=== PATIENT | male | born 1955 | race African-American/Black ===

== ENCOUNTER 2020-03-16 15:01 | Emergency (ER) | payer SELFPAY ==
[~2020-03-16] VITALS: Ht 175.3 cm; Wt 85.0 kg
[2020-03-16 15:07] VITALS: BP 150/74
[2020-03-16] MEDS ORDERED: PENI500T PO (15:26)
--- NOTE | 2020-03-16 15:26 | PHYS DOC ---
Past Medical History Past Medical History: No Pertinent History Past Surgical History: No Surgical History Drug Use: None General Adult EDM: Chief Complaint: FACE PROBLEM HPI: HPI: 64-year-old male presenting with left upper dental pain with some swelling. This started within the past 24 to 48 hours. His significant other is trying to get him into a dentist currently. They called his primary doctor who had him come in for evaluation. He has a throbbing moderate pain which is worse at night. He denies any fevers or any new rashes. He denies difficulty swallowing or drooling. Review of systems negative for neck pain or swelling tongue swelling drooling neck stiffness. All other review of systems negative. ED course: 64-year-old male presenting with dental pain with cavity and erosion of the left back upper teeth. The patient is tender to palpation along the gingiva without obvious palpable abscess formation. Otherwise normal examination. We will start the patient on oral penicillin with some oral hydrocodone to follow-up with a dentist in 1 to 2 days. The patient has been examined and was not found to have an emergency medical condition. The patient was then discharged home in stable condition to follow up with their primary care physician over the next 1-2 days. They were to return if their symptoms worsened or if they were concerned for any reason. They were also instructed to return to the emergency department if they were unable to get the recommended and appropriate follow-up. [id number] discharge instructions and return precautions were given. Patient's questions were answered to their satisfaction. Patient is comfortable with plan. Heart Score: Risk Factors: Risk Factors: DM, Current or recent (<one month) smoker, HTN, HLP, family history of CAD, obesity. Risk Scores: Score 0 - 3: 2.5% MACE over next 6 weeks - Discharge Home Score 4 - 6: 20.3% MACE over next 6 weeks - Admit for Clinical Observation Score 7 - 10: 72.7% MACE over next 6 weeks - Early Invasive Strategies Allergies: Allergies: Allergies Coded Allergies Type Severity Reaction Last Updated Verified No Known Drug Allergies 03/16/20 No Physical Exam: PE: Constitutional: Well developed, well nourished, no acute distress, non-toxic appearance. [] HENT: Normocephalic, atraumatic, bilateral external ears normal, oropharynx moist, no oral exudates, nose normal. Mouth: Poor dentition on the left upper back teeth with obvious cavities. No palpable fluctuant abscesses. No TMJ trismus. Normal oropharyngeal examination otherwise Eyes: PERRLA, EOMI, conjunctiva normal, no discharge. [] Neck: Normal range of motion, no tenderness, supple, no stridor. [] Cardiovascular:Heart rate regular rhythm, no murmur [] Lungs & Thorax: Bilateral breath sounds clear to auscultation [] Abdomen: Bowel sounds normal, soft, no tenderness, no masses, no pulsatile masses. [] Skin: Warm, dry, no erythema, no rash. [] Back: No tenderness, no CVA tenderness. [] Extremities: No tenderness, no cyanosis, no clubbing, ROM intact, no edema. [] Neurologic: Alert and oriented X 3, normal motor function, normal sensory function, no focal deficits noted. [] Psychologic: Affect normal, judgement normal, mood normal. [] EKG: EKG: [] Radiology/Procedures: Radiology/Procedures: [] Course & Med Decision Making: Course & Med Decision Making Pertinent Labs and Imaging studies reviewed. (See chart for details) [] Dragon Disclaimer: Dragon Disclaimer: This electronic medical record was generated, in whole or in part, using a voice recognition dictation system. Departure Departure Impression: Primary Impression: Pain, dental Disposition: 01 HOME, SELF-CARE Condition: STABLE Patient Instructions: Dental Pain Scripts Hydrocodone Bit/Acetaminophen (HYDROCODONE-APAP 5-325 ) 1 Tab Tablet 1 TAB PO PRN Q8HRS PRN for sev, #8 TAB 0 Refills Prov: ALAN SANCHES MD 03/16/20 Penicillin V Potassium (PENICILLIN V POTASSIUM) 500 Mg Tablet 1 TAB PO TID, #30 TAB 0 Refills Prov: ALAN SANCHES MD 03/16/20 ALAN SANCHES MD Mar 16, 2020 15:26
[2020-03-16] MEDS ORDERED: HYDR-2761 PO (15:28)
== END 2020-03-16 15:32 | disposition home or self-care (01) ==
LOC: ER 15:01
DX: K08.89 Other specified disorders of teeth and supporting structures (principal)
CPT/HCPCS: 99284